=== PATIENT | male | born 2000 | race Two or more races ===

== ENCOUNTER 2024-02-29 04:29 | Emergency (ER) | payer OTHER ==
[~2024-02-29] VITALS: Ht 170.2 cm; Wt 177.3 kg
[2024-02-29 04:35] VITALS: TEMP 98.9
[2024-02-29] MEDS ORDERED: KETOROLAC TROMETHAMINE 30 MG/ML VIAL IVP ONE (05:15)
[2024-02-29 05:18] LABS: CALCIUM, TOTAL 8.8 mg/dL (8.8-10.5); CREATININE 1.81 mg/dL (0.60-1.30); POTASSIUM 3.4 mmol/L (3.5-5.1)
[2024-02-29] MEDS: ACETAMINOPHEN 325 MG TABLET PO ONE (05:28)
[2024-02-29] MEDS: KETOROLAC TROMETHAMINE 15 MG/ML VIAL IVP ONE (05:28)
[2024-02-29 05:30] LABS: TROPONIN I-HIGH SENSITIVITY 471 ng/L (<76)
[2024-02-29] MEDS: SODIUM CHLORIDE 0.9% 1,000 ML IV ONE (05:52)
[2024-02-29 06:00] LABS: HEMATOCRIT 40.5 % (41-53); HEMOGLOBIN 13.5 g/dL (13.5-17.5); MEAN CORPUSCULAR HGB CONC 33.2 G/dL (31.0-37.0); MEAN CORPUSCULAR VOLUME 90 fL (80-100); PLATELET COUNT (AUTO) 40 K/uL (150-450); RED BLOOD CELL COUNT(AUTO) 4.49 MIL/uL (4.50-5.90); RED CELL DISTRIBUTION WIDTH 13.8 % (11.5-14.5)
[2024-02-29] MEDS: POTASSIUM CHLORIDE 20 MEQ ER TABLET PO ONE (06:15)
[2024-02-29 06:26] LABS: MAGNESIUM 1.7 mg/dL (1.80-2.40)
[2024-02-29 06:34] LABS: WHITE BLOOD COUNT (AUTO) 108.9 K/uL (4.5-11.0)
[2024-02-29 07:24] LABS: TROPONIN I-HIGH SENSITIVITY 433 ng/L (<76)
[2024-02-29 07:46] LABS: BAND NEUTROPHILS % (MANUAL) 0 % (0-5)
[2024-02-29 08:02] LABS: EOSINOPHILS % (MANUAL) 2 % (1-6); LYMPHOCYTES % (MANUAL) 89 % (22-44); MONOCYTES % (MANUAL) 5 % (2-9); SEGMENTED NEUTROPHILS % 4 % (40-70); TOTAL CELLS COUNTED 100
[2024-02-29 08:03] LABS: RBC MORPHOLOGY COMMENT NORMAL RBC MORPH
[2024-02-29] MEDS: DEXTROSE 5%-LACTATED RINGERS 1,000 ML IV ONE (08:08)
[2024-02-29 17:23] VITALS: BP 96/66; PULSE 80; RESP 20; O2SAT 95
== END 2024-02-29 18:13 | disposition admitted as inpatient to this hospital (09) ==
LOC: EMS 04:32 → CANBEDREQ 13:23 → EMS 18:13
DX: I21.4 Non-ST elevation (NSTEMI) myocardial infarction (principal); N17.9 Acute kidney failure, unspecified; E87.6 Hypokalemia; D69.6 Thrombocytopenia, unspecified; I11.9 Hypertensive heart disease without heart failure
CPT/HCPCS: 99285; 96361; 96374; 71045; 80048; 83735; 83880; 84484; 85025; 93005; 36415; J1885; J7070; J7030; 96365; 96375